=== PATIENT | male | born 1990 | race Caucasian/White ===

== ENCOUNTER 2017-06-04 19:45 | Emergency (ER) | payer OTHER, SELFPAY ==
[2017-06-04 19:46] VITALS: BP 160/108; PULSE 109; RESP 20; TEMP 37; O2SAT 96; BMI 37.3
--- NOTE | 2017-06-04 20:50 | RAD_ITS ---
STUDY: X-RAY - RIGHT KNEE REASON FOR EXAM: Male, 26 years old. Fall, pain TECHNIQUE: 4 view(s) of the knee. COMPARISON: None. FINDINGS: Bony exostosis off the distal lateral femur metadiaphysis. Normal visualized proximal tibia and fibula. Normal proximal tibiofibular articulation. Normal medial femorotibial compartment. Normal lateral femorotibial compartment. Normal patellofemoral articulation. The soft tissue structures are unremarkable. RAD/Knee 4 or More Views IMPRESSION: No fracture or dislocation. Bony exostosis off the distal lateral femur metadiaphysis. Electronically Signed: Jose Daniel Zapata DO at 21:13 EST , Service support ,
--- NOTE | 2017-06-04 21:41 | ED.DCSUM_ITS ---
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 Patient states he felt 3 pops in his right knee. He has not been able to bear weight since that time. He has not yet taken anything for pain. He denies any other injury. Physical Examination: Vital signs include a blood pressure 160/108, otherwise normal. Head and neck examination is normal. Heart is regular rate and rhythm. No lung sounds are clear. Right lower extremity examination was tenderness to palpation on the medial joint line of the right knee. There is no tenderness along the patellar tendon. Ligaments are stable on testing. He has decreased range of motion secondary to pain. Strong distal pulses and normal sensation are noted. Test Results: Knee x-rays are obtained and reveal no evidence of fracture or dislocation. There is bony exostosis noted off the distal lateral femur. Emergency Department Course and Treatment: Patient was given Naprosyn with 1 tab of [place] here for pain. Test results were discussed with him and family at bedside. He is placed in an [place] wrap and given crutches. He may weight-bear as tolerated. He will be given Naprosyn for home. He is referred to Dr. Troy, on-call for orthopedics. Treatment Plan: [] Disposition: Discharge Impression: Right Knee sprain This note was generated with [facility] dictation software. It may contain incorrect words, spelling, and punctuation that were not noted in review of the chart prior to signing ED Disposition - Plan for ED Patient: Disposition: Home or Assisted Living Chief Complaint: Lower Extremity Injury Instructions: ED Sprain Knee Prescriptions: Naproxen [Naprosyn] 500 mg PO BID PRN #20 tablet Referrals: Jai Troy DO [STAFF PHYSICIAN] - 1 Week if not improving
[2017-06-04] MEDS: Naproxen 500 MG Tablet PO (21:47)
[2017-06-04] MEDS: HYDROcodone Bitartrate/Apap 5/325 Tablet PO (21:47)
[2017-06-04 21:50] VITALS: BP 140/83; PULSE 81; RESP 16; O2SAT 96
--- NOTE | 2017-06-04 21:55 | ED.RN ---
VERBAL AND WRITTEN D/C INSTRUCTIONS GIVEN WITH [employer] TEACHING. ALL QUESTIONS ANSWERED.
== END 2017-06-04 21:56 | disposition home or self-care (01) ==
PROVIDERS: Emergency Provider Emergency Medicine
DX: S83.91XA Sprain of unspecified site of right knee, initial encounter (principal); W19.XXXA Unspecified fall, initial encounter; Y93.9 Activity, unspecified; Y92.9 Unspecified place or not applicable; Y99.9 Unspecified external cause status; M89.9 Disorder of bone, unspecified
CPT/HCPCS: 73564; 99283